=== PATIENT | male | born 1965 | race Caucasian/White ===

== ENCOUNTER 2017-04-14 12:56 | Emergency (ER) | payer MEDICARE, OTHER ==
[2017-04-14 13:32] VITALS: BP 141/75
--- NOTE | 2017-04-14 14:13 | EDM.PDOC ---
ED HPI GENERAL MEDICAL PROBLEM - General Chief Complaint: Upper Extremity Injury/Pain Stated Complaint: HURT LT HAND/WRIST Time Seen by Provider: 04/14/17 13:55 Source of Information: Reports: Patient, RN History Limitations: Reports: No Limitations - History of Present Illness INITIAL COMMENTS - FREE TEXT/NARRATIVE: 51 yo male here with L wrist pain and swelling after falling yesterday while attempting to change a light bulb. 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 (see below) (none) Left Hand Pain Score (Numeric/FACES): 10 - Related Data Allergies Allergy/AdvReac Type Severity Reaction Status Date / Time No Known Allergies Allergy Verified 04/14/17 13:32 Home Meds: Home Meds Citalopram Hydrobromide [Citalopram HBr] 1 tab PO DAILY 09/26/13 [History] Digoxin [Digox] 1 tab PO DAILY 09/26/13 [History] Lisinopril [Prinivil] 1 tab PO DAILY 09/26/13 [History] Loperamide [Imodium] 1 tab PO QID PRN 09/26/13 [History] Metoprolol Succinate [Toprol XL 50mg] 100 tab PO BEDTIME 09/26/13 [History] Mometasone Furoate [Nasonex [place]] 2 spray INH DAILY 09/26/13 [History] rOPINIRole [Requip] 1 tab PO BEDTIME 09/26/13 [History] Elviteg/Susan/Emtric/Tenofo Ala [Genvoya Tablet] 1 tab PO DAILY 08/27/15 [History ] Albuterol [Ventolin HFA] 1 puff INH ASDIRECTED 04/14/17 [History] Dabigatran Etexilate Mesylate [Pradaxa] 1 tab PO BID 04/14/17 [History] Gabapentin [Neurontin] 1 tab PO BEDTIME 04/14/17 [History] Gabapentin [Neurontin] 2 tab PO DAILY 04/14/17 [History] Metoprolol Succinate 1 tab PO DAILY 04/14/17 [History] lamoTRIgine [Lamotrigine] 1 tab PO BID 04/14/17 [History] Past Medical History HEENT History: Reports: Impaired Vision Other HEENT History: large adenoidal tumor behind nose Cardiovascular History: Reports: Arrhythmia, Bacterial Endocarditis, Heart Failure, Hypertension, Pacemaker Gastrointestinal History: Reports: Chronic Diarrhea, Hepatitis, Pancreatitis Neurological History: Reports: Headaches, Chronic Psychiatric History: Reports: Anxiety, Bipolar, Depression, Eating Disorders, Mood Swings Immunologic History: Reports: HIV - Infectious Disease History Infectious Disease History: Reports: Chicken Pox, Hepatitis B, HIV-Human Immunodeficiency Virus - Past Surgical History Cardiovascular Surgical History: Reports: Cardiac Ablation, Pacer, Valve Replacement Social & Family History - Tobacco Use Smoking Status *Q: Heavy Tobacco Smoker Years of Tobacco use: 30 Packs/Tins Daily: 1 Used Tobacco, but Quit: Yes Month Tobacco Last Used: 7 Second Hand Smoke Exposure: No - Alcohol Use Days Per Week of Alcohol Use: 0 - Recreational Drug Use Recreational Drug Use: No Recreational Drug Type: Reports: Marijuana/Hashish Review of Systems - Review of Systems Review Of Systems: See Below Constitutional: Reports: No Symptoms Musculoskeletal: Reports: Joint Pain (L wrist), Joint Swelling (L wrist and dorsum of the L hand.) Skin: Reports: Bruising, Erythema Neurological: Reports: No Symptoms ED EXAM, GENERAL - Physical Exam Exam: See Below Exam Limited By: No Limitations General Appearance: Alert, WD/WN, No Apparent Distress Extremities: Pedal Edema (L hand dorsally), Joint Swelling (L wrist), Limited Range of Motion (L wrist) Neurological: Alert, Oriented, CN II-XII Intact, Normal Cognition, No Motor/ Sensory Deficits Psychiatric: Normal Affect, Normal Mood Skin Exam: Warm, Dry, Intact, No Rash, Ecchymosis (L hand dorsally.), Erythema Course - Vital Signs Text/Narrative:: Discussed with orthopedics on-call @ 1435h Percocet 1 po sugar tongue splint applied by nursing + sling Last Recorded V/S: Last Vital Signs Temp 36.7 C 04/14/17 13:29 Pulse 86 04/14/17 13:29 Resp 18 04/14/17 13:29 BP 141/75 H 04/14/17 13:29 Pulse Ox 93 L 04/14/17 13:29 - Orders/Labs/Meds Orders: Active Orders 24 hr Category Date Time Status Wrist Comp Min 3V Lt [CR] Stat Exams 04/14/17 14:08 Taken Acetaminophen/oxyCODONE [Percocet 325-5 MG] Med 04/14/17 14:56 Once 1 tab PO ONETIME ONE Medication Orders Oxycodone/Acetaminophen (Percocet 325-5 Mg) 1 tab PO ONETIME ONE Stop: 04/14/17 14:57 Meds: Medications Generic Name Dose Route Start Last Admin Trade Name Lachelle PRN Reason Stop Dose Admin Oxycodone/Acetaminophen 1 tab 04/14/17 14:56 Percocet 325-5 Mg PO 04/14/17 14:57 ONETIME ONE - Radiology Interpretation Free Text/Narrative:: L wrist [id number] radius fx and ulnar styloid fx Departure - Departure Time of Disposition: 15:30 Disposition: Home, Self-Care 01 Condition: Fair Clinical Impression: Distal radius fracture, left Qualifiers: Encounter type: initial encounter Fracture type: closed Fracture morphology: unspecified fracture morphology Qualified Code(s): S52.502A - Unspecified fracture of the lower end of left radius, initial encounter for closed fracture - Discharge Information Referrals: Gamal Shane MD [Primary Care Provider] - Forms: ED Department Discharge - My Orders Last 24 Hours: My Active Orders 04/14/17 14:08 Wrist Comp Min 3V Lt [CR] Stat 04/14/17 14:56 Acetaminophen/oxyCODONE [Percocet 325-5 MG] 1 tab PO ONETIME ONE - Assessment/Plan Last 24 Hours: My Active Orders 04/14/17 14:08 Wrist Comp Min 3V Lt [CR] Stat 04/14/17 14:56 Acetaminophen/oxyCODONE [Percocet 325-5 MG] 1 tab PO ONETIME ONE
[2017-04-14] MEDS ORDERED: Acetaminophen/oxyCODONE 325-5 MG Tab PO ONE (14:56)
--- NOTE | 2017-04-15 10:42 | CR ---
Left wrist There is a comminuted fracture of the distal radial metaphysis. There is mild displacement. There is involvement of the articular surface. There is a ulnar styloid process fracture. The carpal bones are intact. Impression: 1. Distal radial and ulnar fractures.
== END 2017-04-14 15:31 | disposition home or self-care (01) ==
LOC: JP.ED 12:56
DX: S52.612A Displaced fracture of left ulna styloid process, initial encounter for closed fracture (principal); S52.502A Unspecified fracture of the lower end of left radius, initial encounter for closed fracture; B20 Human immunodeficiency virus [HIV] disease; I11.0 Hypertensive heart disease with heart failure; I50.9 Heart failure, unspecified; F31.9 Bipolar disorder, unspecified; Z95.0 Presence of cardiac pacemaker; Z95.2 Presence of prosthetic heart valve; Z87.891 Personal history of nicotine dependence; Z79.899 Other long term (current) drug therapy; W19.XXXA Unspecified fall, initial encounter; Y93.89 Activity, other specified
CPT/HCPCS: 29125; 73110; 99284; A9270; 99283-25

== ENCOUNTER 2017-04-16 08:44 | Emergency (ER) | payer MEDICARE, OTHER, MEDICAID ==
[2017-04-16 09:12] VITALS: BP 123/76
[2017-04-16] MEDS ORDERED: Ketorolac 60 MG/2 ML SDV IM ONE (10:26)
--- NOTE | 2017-04-16 10:32 | EDM.PDOC ---
ED HPI GENERAL MEDICAL PROBLEM - General Chief Complaint: Upper Extremity Injury/Pain Stated Complaint: LEFT ARM FRACTURED WRIST RECHECK Time Seen by Provider: 04/16/17 10:27 Source of Information: Reports: Patient History Limitations: Reports: No Limitations - History of Present Illness INITIAL COMMENTS - FREE TEXT/NARRATIVE: pt was told to take acedrin for his pain. He did get a perscription for 20 norco. He states that he is just taking excedrin. He seemes slurred with his speech and a little drowsy. Onset: Other (pt is complaining of alot of pain in the wrist level. ) Duration: Day(s): Location: Reports: Upper Extremity, Left Associated Symptoms: Reports: No Other Symptoms Left Arm Pain Score (Numeric/FACES): 10 - Related Data Allergies Allergy/AdvReac Type Severity Reaction Status Date / Time No Known Allergies Allergy Verified 04/14/17 13:32 Home Meds: Home Meds Citalopram Hydrobromide [Citalopram HBr] 1 tab PO DAILY 09/26/13 [History] Digoxin [Digox] 1 tab PO DAILY 09/26/13 [History] Lisinopril [Prinivil] 1 tab PO DAILY 09/26/13 [History] Loperamide [Imodium] 1 tab PO QID PRN 09/26/13 [History] Metoprolol Succinate [Toprol XL 50mg] 100 mg PO BEDTIME 09/26/13 [History] Mometasone Furoate [Nasonex [place]] 2 spray INH DAILY 09/26/13 [History] rOPINIRole [Requip] 1 tab PO BEDTIME 09/26/13 [History] Elviteg/Susan/Emtric/Tenofo Ala [Genvoya Tablet] 1 tab PO DAILY 08/27/15 [History ] Albuterol [Ventolin HFA] 1 puff INH ASDIRECTED 04/14/17 [History] Dabigatran Etexilate Mesylate [Pradaxa] 1 tab PO BID 04/14/17 [History] Gabapentin [Neurontin] 300 mg PO BEDTIME 04/14/17 [History] Gabapentin [Neurontin] 600 mg PO DAILY 04/14/17 [History] Hydrocodone/Acetaminophen [Hydrocodon-Acetaminophen 5-325] 1 - 2 each PO Q4H PRN #20 tablet 04/14/17 [Rx] Metoprolol Succinate 1 tab PO DAILY 04/14/17 [History] lamoTRIgine [Lamotrigine] 1 tab PO BID 04/14/17 [History] Past Medical History HEENT History: Reports: Impaired Vision Other HEENT History: large adenoidal tumor behind nose Cardiovascular History: Reports: Arrhythmia, Bacterial Endocarditis, Heart Failure, Hypertension, Pacemaker Gastrointestinal History: Reports: Chronic Diarrhea, Hepatitis, Pancreatitis Neurological History: Reports: Headaches, Chronic Psychiatric History: Reports: Anxiety, Bipolar, Depression, Eating Disorders, Mood Swings Immunologic History: Reports: HIV - Infectious Disease History Infectious Disease History: Reports: Chicken Pox, Hepatitis B, HIV-Human Immunodeficiency Virus - Past Surgical History Cardiovascular Surgical History: Reports: Cardiac Ablation, Pacer, Valve Replacement Social & Family History - Tobacco Use Smoking Status *Q: Light Tobacco Smoker Years of Tobacco use: 20 Packs/Tins Daily: 0.5 Used Tobacco, but Quit: Yes Month Tobacco Last Used: 7 Second Hand Smoke Exposure: No - Caffeine Use Caffeine Use: Reports: None - Alcohol Use Days Per Week of Alcohol Use: 0 - Recreational Drug Use Recreational Drug Use: No Recreational Drug Type: Reports: Marijuana/Hashish Review of Systems - Review of Systems Review Of Systems: See Below Constitutional: Reports: No Symptoms Eyes: Reports: No Symptoms Ears: Reports: No Symptoms Nose: Reports: No Symptoms Mouth/Throat: Reports: No Symptoms Respiratory: Reports: No Symptoms Cardiovascular: Reports: No Symptoms GI/Abdominal: Reports: No Symptoms Musculoskeletal: Reports: Other (pain in the rt wrist. He has a fracture of the distal rt radius. ) ED EXAM, GENERAL - Physical Exam Exam: See Below Free Text/Narrative:: pt states he did not get any pain meds for his fracture. He got 20 norco which may be all gone. He states he is just using excedrin for his pain Exam Limited By: No Limitations General Appearance: Alert Extremities: Other ( splint is intact . His fingers are not real swollen and are a good color. ) Neurological: Alert, Oriented, Normal Cognition Psychiatric: Normal Affect Course - Vital Signs Last Recorded V/S: Last Vital Signs Temp 36.3 C 04/16/17 09:12 Pulse 89 04/16/17 09:12 Resp 16 04/16/17 09:12 BP 123/76 02/20/18 09:12 Pulse Ox 96 04/16/17 09:12 - Orders/Labs/Meds Meds: Medications Discontinued Medications Generic Name Dose Route Start Last Admin Trade Name Lachelle PRN Reason Stop Dose Admin Ketorolac Tromethamine 60 mg 04/16/17 10:26 04/16/17 10:32 Toradol IM 04/16/17 10:27 60 mg ONETIME ONE Administration - Re-Assessments/Exams Free Text/Narrative Re-Assessment/Exam: 04/16/17 10:35 Splint was rewrapped, he was givEn torodol 60mg im. 04/20/17 10:20 Departure - Departure Time of Disposition: 10:35 Disposition: Home, Self-Care 01 Condition: Fair Clinical Impression: Fracture of distal radius and ulna - Discharge Information Instructions: Radial Fracture With Rehab-Sports[facility] Referrals: Gamal Shane MD [Primary Care Provider] - Forms: ED Department Discharge Care Plan Goals: send a cool pack home with the pt, elevate the wrist, cool pack over the wrist , keep appointment with ortho--Dr Bernardo mcneil at 9 am. . tramodol 50mg q6h prn for pain.
== END 2017-04-16 10:51 | disposition home or self-care (01) ==
LOC: JP.ED 08:44
DX: S52.502A Unspecified fracture of the lower end of left radius, initial encounter for closed fracture (principal); S52.602A Unspecified fracture of lower end of left ulna, initial encounter for closed fracture; I11.0 Hypertensive heart disease with heart failure; I50.9 Heart failure, unspecified; Z79.899 Other long term (current) drug therapy; Z87.891 Personal history of nicotine dependence; W19.XXXA Unspecified fall, initial encounter
CPT/HCPCS: 29125; 96372; 99283; J1885

== ENCOUNTER 2017-04-24 07:10 | Day surgery (SDC) | payer MEDICARE, OTHER ==
[2017-04-24] MEDS ORDERED: Lactated Ringers 1,000 ML IV SCH (07:30)
[2017-04-24] MEDS ORDERED: Metoprolol Succinate 50 MG Tab.ER PO ONE (07:50)
[2017-04-24] MEDS ORDERED: Povidone-Iodine 10% Soln 118.25 ML Bottle ONE (07:50)
[2017-04-24] MEDS ORDERED: Bupivacaine 0.5%/EPINEPHrine 1:200,000 50 ML MDV ONE ×2 (07:51→09:38)
[2017-04-24] MEDS ORDERED: ceFAZolin 2 GM in Premix Bag 1 BAG IV ONE (08:00)
[2017-04-24] MEDS ORDERED: fentaNYL 250 MCG/5 ML SDV ONE (08:23)
[2017-04-24] MEDS ORDERED: Midazolam 1 MG/ML 2 ML SDV ONE (08:23)
[2017-04-24] MEDS ORDERED: Succinylcholine/Normal Saline 200 MG/10 ML Syringe ONE (08:24)
[2017-04-24] MEDS ORDERED: Propofol 200 MG/20 ML SDV ONE (08:24)
[2017-04-24] MEDS ORDERED: Dexamethasone 4 MG/ML SDV ONE (08:24)
[2017-04-24] MEDS ORDERED: Rocuronium 50 MG/5 ML Vial ONE (08:24)
[2017-04-24] MEDS ORDERED: Ondansetron 4 MG/2 ML SDV ONE (08:24)
[2017-04-24] MEDS ORDERED: Neostigmine Methylsulfate 1 MG/ML 5 ML Syringe ONE (08:24)
[2017-04-24 11:50] VITALS: BP 137/86
--- NOTE | 2017-04-24 14:34 | OR ---
DATE OF PROCEDURE: 04/24/2017 PREOPERATIVE DIAGNOSIS: Left wrist distal radius fracture. POSTOPERATIVE DIAGNOSIS: Left wrist distal radius fracture. PROCEDURE: 1. Left wrist open reduction and internal fixation. 2. Radial artery ligation. 3. Application of a short-arm splint. GALLEY COOK: JAXSON Monroy ANESTHESIA: General endotracheal intubation. FLUIDS: Lactated Ringer solution. ESTIMATED BLOOD LOSS: 100 mL. COMPLICATIONS: Radial artery injury. SPECIMEN: None. DISCHARGE DISPOSITION: Stable to PACU. HISTORY AND INDICATIONS FOR THE PROCEDURE: The patient was seen preoperatively by myself and the Anesthesia staff in the preoperative holding area where the operative site was marked in the clinic. He was previously seen in the emergency department, found to have a distal radius fracture. He came back in, not knowing where he had put his splint and we repeated radiographs. Initially, this was going to be treated nonoperatively, but it removed, so we needed to treat it operatively. Risks and benefits of the procedure were explained to the patient. Informed consent was obtained. DETAILS OF PROCEDURE: The patient was seen preoperatively by myself and the Anesthesia staff in the preoperative holding area where the operative site was marked. He was brought to the operative suite by Anesthesia staff where general anesthesia was administered. A well-padded tourniquet was placed on the left arm. Left upper extremity was then prepped and draped in a sterile manner. Time-out was called identifying the correct patient, correct procedure, the correct site, and antibiotics had been with an appropriate period of time. The left upper extremity was then exsanguinated. Tourniquet was raised to 250 mmHg. An incision was made just over the area of the flexor carpi radialis tendon and extended proximally about 8 cm using Metzenbaum and pickups to dissect down the FCR tendon. Unfortunately, the radial artery was injured during this process. I kept moving on and then exposed the flexor carpi radialis, went through the ventral aspect of the tendon and then moved the tendon radially and then went through the dorsal aspect of the sheath. I then used an elevator to remove the bone off the distal radius as well as the pronator. We then identified the fracture and then reduced it. I then placed a small narrow hand innovation plate on and confirmed good position with fluoroscopy by placing a screw in the oblong hole, and I also placed a drill into the styloid screw guide hole. I then drilled and placed partially-threaded screws through my distal radius plate and then I placed a smooth PEG through the radial styloid. I then drilled my 2 other cortical screw holes and then filled those with the cortical screws. I then confirmed good placement and good screw position on AP and lateral fluoroscopy and saved those films. I then let the tourniquet down. The radial artery had been injured. I then ligated the radial artery proximally and distally with 3-0 silk and tied it off. We then used bipolar electrocautery and cauterized any small bleeders. I did not use Bovie electrocautery because the patient had a pacemaker and I did not want to risk affecting the pacemaker with the cautery unit. We then irrigated with Betadine infused irrigation, closed with 3-0 Vicryl subcutaneously, followed by skin joie, followed by sterile dressing, followed by application of a short-arm splint. Rell Chang DO /[id number]
== END 2017-04-24 11:45 | disposition home or self-care (01) ==
LOC: JP.SDS 07:10
PROVIDERS: ATTEND Orthopaedic Surgery
DX: S52.502A Unspecified fracture of the lower end of left radius, initial encounter for closed fracture (principal); S52.202A Unspecified fracture of shaft of left ulna, initial encounter for closed fracture; I10 Essential (primary) hypertension; E66.9 Obesity, unspecified; F31.81 Bipolar II disorder; F41.9 Anxiety disorder, unspecified; Z95.2 Presence of prosthetic heart valve; F17.210 Nicotine dependence, cigarettes, uncomplicated; X58.XXXA Exposure to other specified factors, initial encounter; Z90.49 Acquired absence of other specified parts of digestive tract; Z68.32 Body mass index [BMI] 32.0-32.9, adult
CPT/HCPCS: 25607; 25652; A9270; C1713; J0690; J1100; J2250; J2405; J2704; J3010; J7120

== ENCOUNTER 2018-03-10 05:49 | Emergency (ER) | payer MEDICARE, MEDICAID ==
[2018-03-10 05:54] VITALS: BP 108/57
--- NOTE | 2018-03-10 08:11 | EDM.PDOCBH ---
ED HPI GENERAL MEDICAL PROBLEM - General Chief Complaint: Drug or Alcohol Abuse Stated Complaint: MENTAL EVEL Time Seen by Provider: 03/10/18 07:15 Source of Information: Reports: Patient, EMS History Limitations: Reports: Altered Mental Status - History of Present Illness INITIAL COMMENTS - FREE TEXT/NARRATIVE: Patient is confused, was wandering in and out of the social area of his apartment building acting strangely so someone called the police and ultimately EMS. I have no history as whoever called the police did not identify themselves , the police report is not available and EMS only said that he seemed confused. He does not appear intoxicated, is not running a fever, has no evidence of injury. He repeatedly says he just wants to go home. Of concern however is he is disoriented to the date and time, he has only been in the emergency room for a couple hours. Think he's been here for "2 days". Denies any headache. Onset: Unknown/Unsure Associated Symptoms: Reports: Confusion denies pain Pain Score (Numeric/FACES): 0 - Related Data Allergies Allergy/AdvReac Type Severity Reaction Status Date / Time No Known Allergies Allergy Verified 03/10/18 05:51 Home Meds: Home Meds Citalopram Hydrobromide [Citalopram HBr] 1 tab PO DAILY 09/26/13 [History] Digoxin [Digox] 1 tab PO DAILY 09/26/13 [History] Lisinopril [Prinivil] 2 tab PO DAILY 09/26/13 [History] Loperamide [Imodium] 1 tab PO QID PRN 09/26/13 [History] Metoprolol Succinate [Toprol XL 50mg] 50 mg PO DAILY 09/26/13 [History] rOPINIRole [Requip] 1 tab PO BEDTIME 09/26/13 [History] Elviteg/Susan/Emtric/Tenofo Ala [Genvoya Tablet] 1 tab PO DAILY 08/27/15 [History ] Albuterol [Ventolin HFA] 1 puff INH ASDIRECTED 04/14/17 [History] Dabigatran Etexilate Mesylate [Pradaxa] 1 tab PO BID 04/14/17 [History] Gabapentin [Neurontin] 300 mg PO TID 04/14/17 [History] lamoTRIgine [Lamotrigine] 1 tab PO BEDTIME 04/14/17 [History] ClonazePAM [KlonoPIN] 2 mg PO BID PRN 12/23/17 [History] Flunisolide [Nasalide Nasal [place]] 1 spray BRODERICK BID 12/23/17 [History] Metoprolol Succinate [Toprol XL 100mg] 100 mg PO BEDTIME 12/23/17 [History] Temazepam 30 mg PO BEDTIME 12/23/17 [History] Past Medical History HEENT History: Reports: Impaired Vision Other HEENT History: large adenoidal tumor behind nose Cardiovascular History: Reports: Arrhythmia, Bacterial Endocarditis, Heart Failure, Hypertension, Pacemaker Gastrointestinal History: Reports: Chronic Diarrhea, Hepatitis, Pancreatitis Musculoskeletal History: Reports: Other (See Below) Other Musculoskeletal History: s/p ORIF L wrist Neurological History: Reports: Headaches, Chronic Psychiatric History: Reports: Anxiety, Bipolar, Depression, Eating Disorders, Mood Swings Immunologic History: Reports: HIV - Infectious Disease History Infectious Disease History: Reports: Chicken Pox, HIV-Human Immunodeficiency Virus, Measles - Past Surgical History Cardiovascular Surgical History: Reports: Cardiac Ablation, Pacer, Valve Replacement Social & Family History - Tobacco Use Smoking Status *Q: Current Every Day Smoker Years of Tobacco use: 40 Packs/Tins Daily: 1 - Caffeine Use Caffeine Use: Reports: Soda - Recreational Drug Use Recreational Drug Use: Yes Drug Use in Last 12 Months: No Recreational Drug Type: Reports: Benzodiazepines, Cocaine, Ecstasy, Marijuana/ Hashish, Methamphetamine, Morphine, Oxycodone, Valium, Vicodin ED ROS GENERAL - Review of Systems Review Of Systems: See Below Constitutional: Denies: Fever HEENT: Reports: No Symptoms Respiratory: Denies: Shortness of Breath Cardiovascular: Denies: Chest Pain GI/Abdominal: Denies: Abdominal Pain, Nausea, Vomiting : Reports: No Symptoms Musculoskeletal: Reports: No Symptoms Skin: Reports: No Symptoms Neurological: Denies: Headache ED EXAM, BEHAVIORAL HEALTH - Physical Exam Exam: See Below Exam Limited By: No Limitations General Appearance: Alert, No Apparent Distress Eye Exam: Bilateral Eye: EOMI Head: Atraumatic Respiratory/Chest: No Respiratory Distress, Lungs Clear Cardiovascular: Regular Rate, Rhythm Extremities: No: Pedal Edema Neurological: Alert, Normal Mood/Affect, Disoriented to Time. No: Oriented x 3 , Disoriented to Person, Slow Response to Commands Psychiatric: Alert, Normal Affect Skin Exam: Warm, Dry COURSE, BEHAVIORAL HEALTH COMP - Course Vital Signs: Last Vital Signs Temp 95.8 F 03/10/18 05:54 Pulse 69 03/10/18 05:54 Resp 15 03/10/18 05:54 BP 108/57 L 03/10/18 05:54 Pulse Ox 95 03/10/18 05:54 Orders, Labs, Meds: Active Orders 24 hr Category Date Time Status Head wo Cont [CT] Stat Exams 03/10/18 07:30 Taken Laboratory Tests 03/10/18 03/10/18 03/10/18 Range/Units 06:13 06:14 07:44 WBC 11.9 H (4.5-11.0) K/uL RBC 3.67 L (4.30-5.90) M/uL Hgb 11.7 L (12.0-15.0) g/dL Hct 34.8 L (40.0-54.0) % MCV 95 (80-98) fL MCH 32 H (27-31) pg MCHC 34 (32-36) % Plt Count 210 (150-400) K/uL Neut % (Auto) 57 (36-66) % Lymph % (Auto) 30 (24-44) % [place] % (Auto) 9 H (2-6) % Eos % (Auto) 3 (2-4) % Baso % (Auto) 1 (0-1) % Sodium (140-148) mmol/L Potassium (3.6-5.2) mmol/L Chloride (100-108) mmol/L Carbon Dioxide (21-32) mmol/L Anion Gap (5.0-14.0) mmol/L BUN (7-18) mg/dL Creatinine (0.8-1.3) mg/dL Est Cr Clr Drug Dosing mL/min Estimated GFR (MDRD) (>60) Glucose (74-106) mg/dL Calcium (8.5-10.1) mg/dL Total Bilirubin (0.2-1.0) mg/dL AST (15-37) U/L ALT (12-78) U/L Alkaline Phosphatase (46-116) U/L Total Protein (6.4-8.2) g/dL Albumin (3.4-5.0) g/dL Globulin (2.3-3.5) g/dL Albumin/Globulin Ratio (1.2-2.2) Urine Color Yellow Urine Appearance Slightly cloudy Urine pH 5.0 (4.5-8.0) Ur Specific [place] 1.015 (1.008-1.030) Urine Protein Trace (NEGATIVE) mg/dL Urine Glucose (UA) Normal (NEGATIVE) mg/dL Urine Ketones Negative (NEGATIVE) mg/dL Urine Occult Blood Moderate (NEGATIVE) Urine Nitrite Negative (NEGAITVE) Urine Bilirubin Negative (NEGATIVE) Urine Urobilinogen Normal (NORMAL) mg/dL Ur Leukocyte Esterase Negative (NEGATIVE) Urine RBC 10-20 H (0-5) Urine WBC 0-5 (0-5) Ur Epithelial Cells Few Amorphous Sediment Not seen Urine Bacteria Few Urine Mucus Not seen Urine Opiates Screen Negative (NEGATIVE) Ur Oxycodone Screen Negative (NEGATIVE) Urine Methadone Screen Negative (NEGATIVE) Ur Propoxyphene Screen Negative (NEGATIVE) Ur Barbiturates Screen Negative (NEGATIVE) Ur Tricyclics Screen Negative (NEGATIVE) Ur Phencyclidine Scrn Negative (NEGATIVE) Ur Amphetamine Screen Negative (NEGATIVE) U Methamphetamines Scrn Negative (NEGATIVE) Urine MDMA Screen Negative (NEGATIVE) U Benzodiazepines Scrn Presumptive positive H (NEGATIVE) U Cocaine Metab Screen Negative (NEGATIVE) U Marijuana (THC) Screen Presumptive positive H (NEGATIVE) 03/10/18 Range/Units 07:44 WBC (4.5-11.0) K/uL RBC (4.30-5.90) M/uL Hgb (12.0-15.0) g/dL Hct (40.0-54.0) % MCV (80-98) fL MCH (27-31) pg MCHC (32-36) % Plt Count (150-400) K/uL Neut % (Auto) (36-66) % Lymph % (Auto) (24-44) % [place] % (Auto) (2-6) % Eos % (Auto) (2-4) % Baso % (Auto) (0-1) % Sodium 138 L (140-148) mmol/L Potassium 4.9 (3.6-5.2) mmol/L Chloride 105 (100-108) mmol/L Carbon Dioxide 21 (21-32) mmol/L Anion Gap 16.9 H (5.0-14.0) mmol/L BUN 39 H D (7-18) mg/dL Creatinine 2.6 H (0.8-1.3) mg/dL Est Cr Clr Drug Dosing 27.20 mL/min Estimated GFR (MDRD) 26 L (>60) Glucose 100 (74-106) mg/dL Calcium 9.3 (8.5-10.1) mg/dL Total Bilirubin 0.2 D (0.2-1.0) mg/dL AST 20 D (15-37) U/L ALT 30 (12-78) U/L Alkaline Phosphatase 73 (46-116) U/L Total Protein 7.3 (6.4-8.2) g/dL Albumin 3.2 L (3.4-5.0) g/dL Globulin 4.1 H (2.3-3.5) g/dL Albumin/Globulin Ratio 0.8 L (1.2-2.2) Urine Color Urine Appearance Urine pH (4.5-8.0) Ur Specific [place] (1.008-1.030) Urine Protein (NEGATIVE) mg/dL Urine Glucose (UA) (NEGATIVE) mg/dL Urine Ketones (NEGATIVE) mg/dL Urine Occult Blood (NEGATIVE) Urine Nitrite (NEGAITVE) Urine Bilirubin (NEGATIVE) Urine Urobilinogen (NORMAL) mg/dL Ur Leukocyte Esterase (NEGATIVE) Urine RBC (0-5) Urine WBC (0-5) Ur Epithelial Cells Amorphous Sediment Urine Bacteria Urine Mucus Urine Opiates Screen (NEGATIVE) Ur Oxycodone Screen (NEGATIVE) Urine Methadone Screen (NEGATIVE) Ur Propoxyphene Screen (NEGATIVE) Ur Barbiturates Screen (NEGATIVE) Ur Tricyclics Screen (NEGATIVE) Ur Phencyclidine Scrn (NEGATIVE) Ur Amphetamine Screen (NEGATIVE) U Methamphetamines Scrn (NEGATIVE) Urine MDMA Screen (NEGATIVE) U Benzodiazepines Scrn (NEGATIVE) U Cocaine Metab Screen (NEGATIVE) U Marijuana (THC) Screen (NEGATIVE) Re-Assessment/Re-Exam: Patient is not homicidal or suicidal, has no intention of self-harm but is fairly significantly confused, somewhat delirious and having a hard time following a train of thought. Urine drug screen returned with positive benzodiazepines which she is prescribed, also positive for marijuana. CBC, CMP and head CT were obtained. Creatinine elevation and lower GFR is consistent with past readings. WBC and hemoglobin are near normal. Patient continued to be fairly cooperative but confused. I don't have enough to place him on a hold, he does not seem dangerous and wants to be discharged home, I did tell him that if he continues to have confusion to the point where he is brought back we will find him some help. He is comfortable with this plan. I told him to avoid marijuana, it may be laced with something that is causing confusion. Head CT was normal Departure - Departure Time of Disposition: 08:50 Disposition: Home, Self-Care 01 Condition: Fair Clinical Impression: Delirium, Chronic renal insufficiency, stage II (mild) - Discharge Information Instructions: Delirium Referrals: PCP,None [Primary Care Provider] - Forms: ED Department Discharge Care Plan Goals: Continue your current medications, stay hydrated, and avoid marijuana use if possible. Recheck with your regular doctor in the next 1-2 weeks if you do not feel you are improving satisfactorily. Return to the emergency room if worsening. - My Orders Last 24 Hours: My Active Orders 03/10/18 07:30 Head wo Cont [CT] Stat - Assessment/Plan Last 24 Hours: My Active Orders 03/10/18 07:30 Head wo Cont [CT] Stat
== END 2018-03-10 08:50 | disposition home or self-care (01) ==
LOC: JP.ED 05:49
DX: I13.0 Hypertensive heart and chronic kidney disease with heart failure and stage 1 through stage 4 chronic kidney disease, or unspecified chronic kidney disease (principal); I50.9 Heart failure, unspecified; N18.2 Chronic kidney disease, stage 2 (mild); R41.0 Disorientation, unspecified; F17.210 Nicotine dependence, cigarettes, uncomplicated; F31.9 Bipolar disorder, unspecified; Z79.899 Other long term (current) drug therapy
CPT/HCPCS: 36415; 70450; 80053; 80305-QW; 81001; 85025; 99285-25

== ENCOUNTER 2018-03-10 11:54 | Emergency (ER) | payer MEDICARE, MEDICAID ==
--- NOTE | 2018-03-10 12:20 | EDM.PDOCBH ---
ED HPI GENERAL MEDICAL PROBLEM - General Chief Complaint: Behavioral/Psych Stated Complaint: MEDICAL VIA [facility] Time Seen by Provider: 03/10/18 12:00 Source of Information: Reports: EMS History Limitations: Reports: Altered Mental Status, Other (Significant confusion, delirium) - History of Present Illness INITIAL COMMENTS - FREE TEXT/NARRATIVE: 52-year-old male who was evaluated this morning with acute confusion was improving while in the emergency room, no physical findings explaining the delirium was found so he was transported back home by police. However he returns now by EMS because he is wondering about the apartment, can find is room , can't find his [place], and is not making any sense. He actually seems somewhat worse than he was this morning. He personally still has no complaints and is very angry about being here and wants to go home. Associated Symptoms: Reports: Confusion - Related Data Allergies Allergy/AdvReac Type Severity Reaction Status Date / Time No Known Allergies Allergy Verified 03/10/18 05:51 Home Meds: Home Meds Citalopram Hydrobromide [Citalopram HBr] 1 tab PO DAILY 09/26/13 [History] Digoxin [Digox] 1 tab PO DAILY 09/26/13 [History] Lisinopril [Prinivil] 2 tab PO DAILY 09/26/13 [History] Loperamide [Imodium] 1 tab PO QID PRN 09/26/13 [History] Metoprolol Succinate [Toprol XL 50mg] 50 mg PO DAILY 09/26/13 [History] rOPINIRole [Requip] 1 tab PO BEDTIME 09/26/13 [History] Elviteg/Susan/Emtric/Tenofo Ala [Genvoya Tablet] 1 tab PO DAILY 08/27/15 [History ] Albuterol [Ventolin HFA] 1 puff INH ASDIRECTED 04/14/17 [History] Dabigatran Etexilate Mesylate [Pradaxa] 1 tab PO BID 04/14/17 [History] Gabapentin [Neurontin] 300 mg PO TID 04/14/17 [History] lamoTRIgine [Lamotrigine] 1 tab PO BEDTIME 04/14/17 [History] ClonazePAM [KlonoPIN] 2 mg PO BID PRN 12/23/17 [History] Flunisolide [Nasalide Nasal [place]] 1 spray BRODERICK BID 12/23/17 [History] Metoprolol Succinate [Toprol XL 100mg] 100 mg PO BEDTIME 12/23/17 [History] Temazepam 30 mg PO BEDTIME 12/23/17 [History] Past Medical History HEENT History: Reports: Impaired Vision Other HEENT History: large adenoidal tumor behind nose Cardiovascular History: Reports: Arrhythmia, Bacterial Endocarditis, Heart Failure, Hypertension, Pacemaker Gastrointestinal History: Reports: Chronic Diarrhea, Hepatitis, Pancreatitis Musculoskeletal History: Reports: Other (See Below) Other Musculoskeletal History: s/p ORIF L wrist Neurological History: Reports: Headaches, Chronic Psychiatric History: Reports: Anxiety, Bipolar, Depression, Eating Disorders, Mood Swings Immunologic History: Reports: HIV - Infectious Disease History Infectious Disease History: Reports: Chicken Pox, HIV-Human Immunodeficiency Virus, Measles - Past Surgical History Cardiovascular Surgical History: Reports: Cardiac Ablation, Pacer, Valve Replacement Social & Family History - Caffeine Use Caffeine Use: Reports: Soda ED ROS GENERAL - Review of Systems Review Of Systems: Unable To Obtain (Patient is currently not cooperating with the review of systems, denies any complaints) ED EXAM, BEHAVIORAL HEALTH - Physical Exam Exam: See Below Exam Limited By: No Limitations General Appearance: Alert, No Apparent Distress Eye Exam: Bilateral Eye: EOMI Head: Atraumatic Respiratory/Chest: No Respiratory Distress, Lungs Clear Cardiovascular: Regular Rate, Rhythm Neurological: Alert Psychiatric: Alert, Disoriented, Flight of Ideas. No: Depressed Mood, Flat Affect Skin Exam: Warm, Dry COURSE, BEHAVIORAL HEALTH COMP - Course Vital Signs: Last Vital Signs Temp 97.6 F 03/10/18 14:48 Pulse 96 03/10/18 14:48 Resp 13 03/10/18 14:48 BP 146/74 H 03/10/18 14:48 Pulse Ox 95 03/10/18 14:48 Re-Assessment/Re-Exam: This patient is obviously not stable enough psychiatrically to stay at home. He needs a formal evaluation, so will be placed on a 72 hour hold if necessary. Initially [facility] was called where he was admitted 2 months ago but all the psychiatric beds are full so [facility] was consulted. This morning's labs will be faxed along with the records to [facility] so they can consider an admission. Patient was graciously accepted to [facility] for inpatient psychiatric evaluation. Departure - Departure Time of Disposition: 15:15 Disposition: DC/Tfer to Other 70 Condition: Fair Clinical Impression: Delusional disorder, Chronic renal insufficiency, stage II (mild), Delirium - Discharge Information Referrals: PCP,None [Primary Care Provider] - Forms: ED Department Discharge Care Plan Goals: Patient is to be transferred to [facility] for inpatient psychiatric evaluation on a 72 hour hold.
[2018-03-10 14:49] VITALS: BP 146/74
== END 2018-03-10 15:15 | disposition other institution (70) ==
LOC: JP.ED 11:54
DX: I13.0 Hypertensive heart and chronic kidney disease with heart failure and stage 1 through stage 4 chronic kidney disease, or unspecified chronic kidney disease (principal); N18.2 Chronic kidney disease, stage 2 (mild); I50.9 Heart failure, unspecified; F41.9 Anxiety disorder, unspecified; F31.9 Bipolar disorder, unspecified; F22 Delusional disorders; R41.0 Disorientation, unspecified; Z79.899 Other long term (current) drug therapy
CPT/HCPCS: 99285

== ENCOUNTER 2018-07-05 12:17 | Emergency (ER) | payer MEDICAID, MEDICARE ==
[2018-07-05] MEDS ORDERED: Sodium Chloride 0.9% 10 ML Syringe FLUSH PRN (13:01)
[2018-07-05] MEDS ORDERED: Sodium Chloride 0.9% 1,000 ML IV SCH ×3 (13:30→15:45)
[2018-07-05] MEDS ORDERED: Albuterol 0.083% 2.5 MG/3 ML Neb Soln NEB ONE (13:34)
[2018-07-05] MEDS ORDERED: Insulin Regular, Human 100 Units/ML 3 ML Vial SUBCUT ONE (13:34)
[2018-07-05] MEDS ORDERED: 50% Dextrose in Water 50 ML Syringe IVPUSH ONE (13:34)
[2018-07-05] MEDS ORDERED: Calcium Gluconate 10% 1 GM/10 ML SDV IVPUSH ONE (13:34)
[2018-07-05] MEDS ORDERED: Sodium Polystyrene Sulfonate 15 GM/60 ML Susp 60 ML Bot PO ONE (13:37)
[2018-07-05] MEDS ORDERED: Diphtheria,Pertussis(Acell),Tetanus Vaccine 0.5 ML SDV IM ONE (13:53)
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
[2018-07-05] MEDS ORDERED: Lidocaine 2% Jelly 10 ML Urojet MUCMEM ONE (14:35)
--- NOTE | 2018-07-05 15:11 | CRLCR ---
HISTORY: Syncope and fall. FINDINGS: Four views of the chest are provided. The lungs are clear and there is no evidence for pleural effusion or pneumothorax. Cardiac silhouette size appears enlarged, but this in part could be related to magnification from AP technique. There is a pacemaker in place with 3 leads. IMPRESSION: Clear lungs. Dictated by Erasmo House MD @ Jul 05 2018 3:07PM Signed by Dr. Erasmo House @ Jul 05 2018 3:09PM
[2018-07-05 15:15] VITALS: BP 112/40
--- NOTE | 2018-07-05 15:15 | CRLCR ---
HISTORY: Pain after falling injury. FINDINGS: Single AP view of the pelvis is provided. No findings for fracture or dislocation. Mild spurring is noted of the margins of the acetabulum bilaterally. There is a left ureteral stent in place. IMPRESSION: Negative study for fracture. Dictated by Erasmo House MD @ Jul 05 2018 3:15PM Signed by Dr. Erasmo House @ Jul 05 2018 3:15PM
--- NOTE | 2018-07-05 15:29 | CRLCT ---
INDICATION: Fall, syncope, decreased loss of consciousness TECHNIQUE: CT head without contrast. COMPARISON: CT head 03/10/2018 FINDINGS: The ventricles are prominent in proportion to the cortical sulci and stable compared to prior exam. The gallardo-white matter junction is distinct. Negative for acute intracranial hemorrhage, extra-axial fluid collection or midline shift. The basal cisterns are intact. The visualized paranasal sinuses and mastoid air cells are clear. Negative for displaced skull fracture. IMPRESSION: Stable noncontrast CT examination of the head without acute intracranial abnormality. Dictated by Amber Jones MD @ 07/05/2018 3:26:34 PM Please note that all CT scans at this facility use dose modulation, iterative reconstruction, and/or weight-based dosing when appropriate to reduce radiation dose to as low as reasonably achievable. Dictated by: Amber Jones MD @ 07/05/2018 15:26:42 (Electronically Signed)
--- NOTE | 2018-07-05 15:35 | CRLCT ---
INDICATION: Fall, neck pain, loss of consciousness TECHNIQUE: CT cervical spine without contrast. COMPARISON: None available FINDINGS: There is normal cervical lordosis. The vertebral body heights are maintained and in good alignment. Negative for acute fracture. The facets are properly aligned. The prevertebral soft tissues are within normal limits. There is mild disc space narrowing throughout the cervical spine. Anterior osteophytes are seen at the C5-C6 and C6-C7 levels. Posterior disc osteophyte complexes are present C3-C4, C4-C5, C5-C6 and C6-C7 levels. This is resulting in [id number] bilateral neural foraminal narrowing. There is a mildly prominent left supraclavicular node which measures 1.2 x 1.2 cm. IMPRESSION: 1. Negative for acute fracture. 2. Multilevel degenerative spondylosis. 3. Mildly prominent left supraclavicular node measuring 1.2 x 1.2 cm. Dictated by Amber Jones MD @ 07/05/2018 3:33:00 PM Please note that all CT scans at this facility use dose modulation, iterative reconstruction, and/or weight-based dosing when appropriate to reduce radiation dose to as low as reasonably achievable. Dictated by: Amber Jones MD @ 07/05/2018 15:33:07 (Electronically Signed)
== END 2018-07-05 17:04 ==
LOC: JP.ED 12:17
DX: N17.9 Acute kidney failure, unspecified (principal); I13.0 Hypertensive heart and chronic kidney disease with heart failure and stage 1 through stage 4 chronic kidney disease, or unspecified chronic kidney disease; N18.9 Chronic kidney disease, unspecified; I50.9 Heart failure, unspecified; E87.5 Hyperkalemia; F17.210 Nicotine dependence, cigarettes, uncomplicated; F31.9 Bipolar disorder, unspecified; F41.9 Anxiety disorder, unspecified; Z79.899 Other long term (current) drug therapy; Z23 Encounter for immunization; Z21 Asymptomatic human immunodeficiency virus [HIV] infection status
CPT/HCPCS: 36415; 51702; 70450; 71046; 72125; 72170; 80053; 80162; 80305; 81001; 82550; 83605; 83690; 84484; 85025; 85610; 87040; 87086; 90471; 90715; 93005; 94640; 96361; 96374; 99291; A4216; A9270; G0480; J0610; J7030; J7050; J1815-GY